=== PATIENT | male | born 1950 | race Caucasian/White ===

== ENCOUNTER 2017-12-09 07:30 | Day surgery (SDC) | payer OTHER ==
[~2017-12-09] VITALS: Ht 180.3 cm; Wt 90.3 kg
[~2017-12-09 07:30] MED LIST: APRESOLINE25 MG PO; ASPIR 8181 M1 PO; CARDURA8 MG PO; DIOVAN320 MG PO; HYDROCHLOROTHIA50 MG PO; IMDUR30 MG PO; LASIX40 MG PO; LONITEN2.5 MG PO; LOPRESSOR100 M1 PO; NORVASC10 MG PO
== END 2017-12-09 10:00 | disposition home or self-care (01) ==
LOC: CATH 07:30
DX: T82.858A Stenosis of other vascular prosthetic devices, implants and grafts, initial encounter (principal); Y83.2 Surgical operation with anastomosis, bypass or graft as the cause of abnormal reaction of the patient, or of later complication, without mention of misadventure at the time of the procedure; I12.0 Hypertensive chronic kidney disease with stage 5 chronic kidney disease or end stage renal disease; N18.6 End stage renal disease; Z99.2 Dependence on renal dialysis; Z87.891 Personal history of nicotine dependence
CPT/HCPCS: 87641; C1725; C1769; C1874; C1894; J1644; J2250; J3010